=== PATIENT | female | born 2000 | race Two or more races ===

== ENCOUNTER 2023-04-17 22:42 | Emergency (ER) | payer OTHER ==
[~2023-04-17] VITALS: Ht 165.1 cm; Wt 51.3 kg
[2023-04-17] MEDS ORDERED: IBUPROFEN 400 MG TABLET PO ONE (23:00)
[2023-04-17] MEDS ORDERED: IBUPROFEN 400 MG TABLET ONE (23:04)
[2023-04-18 06:21] VITALS: BP 111/65; TEMP 98.9; O2SAT 99
== END 2023-04-18 06:21 | disposition home or self-care (01) ==
LOC: ER 22:49
DX: S00.03XA Contusion of scalp, initial encounter (principal); S40.011A Contusion of right shoulder, initial encounter; F17.200 Nicotine dependence, unspecified, uncomplicated; Z59.00 Homelessness unspecified; Y08.89XA Assault by other specified means, initial encounter; Y93.89 Activity, other specified; Y92.89 Other specified places as the place of occurrence of the external cause; Y99.8 Other external cause status
CPT/HCPCS: 70450-TC; 70486-TC; 73030-TC